=== PATIENT | male | born 1960 | race Two or more races ===

== ENCOUNTER 2021-07-11 21:42 | Emergency (ER) | payer MEDICAID, OTHER ==
[~2021-07-11] VITALS: Ht 177.8 cm; Wt 88.5 kg
[2021-07-11 21:43] VITALS: BP 142/118
[2021-07-12] MEDS ORDERED: ACETAMINOPHEN 500 MG TAB PO ONE (00:30)
[2021-07-12] MEDS ORDERED: HYDR-4902 PO (01:10)
== END 2021-07-12 01:48 | disposition home or self-care (01) ==
LOC: ER 21:48
DX: S20.221A Contusion of right back wall of thorax, initial encounter (principal); W18.09XA Striking against other object with subsequent fall, initial encounter; Y93.01 Activity, walking, marching and hiking; Y92.89 Other specified places as the place of occurrence of the external cause; Y99.8 Other external cause status
CPT/HCPCS: 71045

== ENCOUNTER 2021-08-13 00:11 | Emergency (ER) | payer MEDICAID ==
[~2021-08-13] VITALS: Ht 177.8 cm; Wt 88.5 kg
[~2021-08-13 00:11] MED LIST: HYDR-4902 PO
[2021-08-13 00:53] VITALS: BP 144/79
== END 2021-08-13 04:24 | disposition home or self-care (01) ==
LOC: ER 00:23
DX: M79.605 Pain in left leg (principal); M25.562 Pain in left knee; Z79.899 Other long term (current) drug therapy
CPT/HCPCS: 73590